=== PATIENT | female | born 1975 | race Two or more races ===

== ENCOUNTER 2022-12-17 05:35 | Day surgery (SDC) | payer OTHER ==
[~2022-12-17] VITALS: Ht 154.9 cm; Wt 54.4 kg
[2022-12-17] MEDS ORDERED: OXYC1TAB9 PO (08:28)
== END 2022-12-17 14:35 | disposition home or self-care (01) ==
LOC: CIR.AMB 05:35
PROVIDERS: ATTEND Surgery
DX: K64.2 Third degree hemorrhoids (principal); K64.8 Other hemorrhoids; K64.4 Residual hemorrhoidal skin tags; K62.89 Other specified diseases of anus and rectum; K62.5 Hemorrhage of anus and rectum; K59.09 Other constipation; Z20.822 Contact with and (suspected) exposure to COVID-19; D64.9 Anemia, unspecified